=== PATIENT | female | born 1995 | race Caucasian/White ===

== ENCOUNTER 2018-03-09 13:20 | Emergency (ER) | payer OTHER ==
[2018-03-09 14:22] VITALS: BP 104/74
--- NOTE | 2018-03-09 14:23 | UC ---
Complaint Female HPI - HPI Summary HPI Summary: 23 yo female presents with urinary pressure and burning that began this morning. She tells me that she has had UTIs in the past and this feels the same. Denies fever, chills, abdominal pain, n/v, flank pain, vaginal bleeding/ discharge. - History Of Current Complaint Chief Complaint: UCGU Stated Complaint: URINARY Time Seen by Provider: 03/09/18 14:22 Hx Obtained From: Patient Hx Last Menstrual Period: 02/24/18 Onset/Duration: Sudden Onset Severity Currently: None Pain Intensity: 0 - Allergies/Home Medications Allergies/Adverse Reactions: Allergies Allergy/AdvReac Type Severity Reaction Status Date / Time No Known Allergies Allergy Verified 08/12/15 11:14 Home Medications: Home Medications B12 500 mcg PO DAILY 03/09/18 [History Confirmed 03/09/18] PMH/Surg Hx/FS Hx/Imm Hx - Additional Past Medical History Additional PMH: Vitamin B12 def - Surgical History Surgical History: None - Family History Known Family History: Positive: None - Social History Occupation: Student Lives: Dormitory/Roommates Alcohol Use: Occasionally Substance Use Type: None Smoking Status (MU): Never Smoked Tobacco Review of Systems Constitutional: Negative Skin: Negative Respiratory: Negative Cardiovascular: Negative Gastrointestinal: Negative Genitourinary: Dysuria, Urgency Neurovascular: Negative Neurological: Negative Psychological: Negative All Other Systems Reviewed And Are Negative: Yes Physical Exam - Summary Physical Exam Summary: GENERAL: NAD. WDWN. No pain distress. SKIN: No rashes, sores, lesions, or open wounds. NECK: Supple. Nontender. No lymphadenopathy. CHEST: CTAB. No r/r/w. No accessory muscle use. Breathing comfortably and in no distress. CV: RRR. Without m/r/g. Pulses intact. Cap refill <2seconds ABDOMEN: Soft. NTTP. No distention or guarding. No CVA tenderness. Bowel sounds present NEURO: Alert. PSYCH: Age appropriate behavior. Triage Information Reviewed: Yes Vital Signs: Initial Vital Signs Temp 98.7 F 03/09/18 14:15 Pulse 68 03/09/18 14:15 Resp 22 03/09/18 14:15 BP 104/74 03/09/18 14:15 Pulse Ox 100 03/09/18 14:15 Vital Signs Reviewed: Yes Complaint Female Dx - Course Course Of Treatment: UA with trace leuks and 3+ blood. Will treat for UTI with Bactrim and send her urine for culture. - Differential Dx/Diagnosis Provider Diagnoses: UTI Discharge - Sign-Out/Discharge Documenting (check all that apply): Patient Departure All imaging exams completed and their final reports reviewed: No Studies - Discharge Plan Condition: Stable Disposition: HOME Prescriptions: Sulfamethox/Trimethoprim DS* [Bactrim DS 800/160 TAB*] 1 tab PO BID #10 tab Patient Education Materials: Urinary Tract Infection in Women (DC) Forms: *School Release Referrals: No Primary Care Phys,NOPCP [Primary Care Provider] - Additional Instructions: If you develop a fever, shortness of breath, chest pain, new or worsening symptoms - please call your PCP or go to the ED. - Billing Disposition and Condition Condition: STABLE Disposition: Home
--- NOTE | 2018-03-11 07:39 | UC ---
- Progress Note Progress Note: + E coli uti on Bactrim await sensitivity, no change ljj Discharge - Sign-Out/Discharge Documenting (check all that apply): Post-Discharge Follow Up All imaging exams completed and their final reports reviewed: No Studies - Discharge Plan Condition: Stable Disposition: HOME Prescriptions: Sulfamethox/Trimethoprim DS* [Bactrim DS 800/160 TAB*] 1 tab PO BID #10 tab Patient Education Materials: Urinary Tract Infection in Women (DC) Forms: *School Release Referrals: No Primary Care Phys,NOPCP [Primary Care Provider] - Additional Instructions: If you develop a fever, shortness of breath, chest pain, new or worsening symptoms - please call your PCP or go to the ED. - Billing Disposition and Condition Condition: STABLE Disposition: Home
== END 2018-03-09 14:56 | disposition home or self-care (01) ==
LOC: UCCORT 13:20
DX: N39.0 Urinary tract infection, site not specified (principal); E53.8 Deficiency of other specified B group vitamins; Z79.2 Long term (current) use of antibiotics
CPT/HCPCS: 81002; 87077; 87086; 87186; 99212; G0463

== ENCOUNTER 2018-04-13 13:16 | Emergency (ER) | payer OTHER ==
--- OUTSIDE RECORDS SUMMARY | 2018-04-13 13:56 | XMS REPORT | Continuity of Care Document ---
:1995 External Reference #:[id number] Author Name Whit Wright MD Address [address] [address] Care Team Providers Name Role Phone Whit Wright MD Care Team Information Commodity Director Unavailable Payers Type Date Identification Numbers Payment Provider Subscriber Effective: Policy Number: [id number] [facility] [place] Yash [place] 2017 PayID: [id number] [address] [address] [place] [address] Advance Directives Description No Information Available Problems Description No Information Family History Date Family Member(s) Problem(s) Comments Father Unknown Mother Bipolar Disorder Mother Anemia Children None Siblings None Social History Type Date Description Comments Sex Unknown Lives With Guardian calls them Mom and Dad, in [place], he is the step brother of her biological father, lives with them out of college season, together since pt was age 9yo . 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[employer], Communications major ETOH Use Denies alcohol use Tobacco Use Start: Unknown Patient has never smoked Recreational Drug Use Denies Drug Use Smoking Status Reviewed: Patient has never 12/30/17 smoked Exercise Type/Frequency Exercises regularly goes to a gym, dance team Currently Active Patient is currently sexually active # Partners in a Lifetime partners 12/30/17 --reports 9 Lifetime Allergies, Adverse Reactions, Alerts Description No Known Drug Allergies Medications Medication Date Status Form Strength Qnty SIG Indications Ordering Provider Adapalene 03/27/ Active Gel 0.1% 45gm apply to L70.9 Jaylan 2017 aliciaed Whit sanchez areas at bedtime - Folic Acid 01/20/ Active Tablets 1mg 30tabs 1 by mouth E53.9 [place] 2018 every day Whit sanchez with B12 Nualec 12/31/ Active Ring 0.12-0.015 3units insert Z30.09 [place] 2018 mg/24HR vaginally, Whit sanchez, keep in MD place for 3 weeks, remove for one week, place another Vitamin B12 / Active Tablets 500mcg 1 by mouth E53.9 Unknown 0000 every day Sertraline 01/20/ Hx Concentrate 20mg/ml 60ml 1 ml daily F41.9 [place] HCL 2017 - for 2 Whit sanchez, 03/26/ weeks and 2017 increase to 2 ml daily if not better No Active 12/30/ Hx Unknown Medications 2017 - 2017 Immunizations CPT Code Status Date Vaccine Lot # [id number] Given 12/31/2017 Meningococcal B(Bexsero)protn otrMembran Vesicle [id number] Vccn 2 dose sche U-Td Given 10/26/2014 Td(Adult) (Non Billable) Unspecified 90856 Given 10/26/2014 Menactra/Menveo Meningococcal Vaccine 12946 Given 04/01/2014 Gardasil-9 (HPV) Nonavalent 2-[place] [id number] Given 09/30/2013 Gardasil-9 (HPV) Nonavalent 2-[place] [address] Given 06/29/2013 Gardasil-9 (HPV) Nonavalent 2-[place] [address] Given 01/01/2011 Hepatitis A, Ped/Adolescent 2 Dose Schedule 01090 Given 02/13/2009 Hepatitis A, Ped/Adolescent 2 Dose Schedule 35925 Given 03/01/2008 Tdap (Adacel) Ages 7 And Above Only 51681 Given 02/11/2008 Menactra/Menveo Meningococcal Vaccine U-Polio Given 02/20/2004 Polio (Non Billable) Unspecified 39515 Given 02/14/2004 Varicella (Chicken Pox) Immunization 88716 Given 02/19/2001 MMR Virus Immunization U-DTaP Given 02/19/2001 DTaP (Non Billable) Unspecified [id number] U-HIB Given 04/24/1999 Hib (Non Billable) Unspecified U-DTaP Given 04/24/1999 DTaP (Non Billable) Unspecified [id number] U-Polio Given 06/25/1998 Polio (Non Billable) Unspecified 28621 Given 02/23/1998 Varicella (Chicken Pox) Immunization 41523 Given 02/23/1998 MMR Virus Immunization U-HIB Given 1997 Hib (Non Billable) Unspecified U-DTaP Given 1997 DTaP (Non Billable) Unspecified [id number] 63922 Given 1997 Hepatitis B Vac Ped/Adolescent 3 Dose Schedule U-DTaP Given 1997 DTaP (Non Billable) Unspecified [id number] U-Polio Given 1997 Polio (Non Billable) Unspecified U-HIB Given 1997 Hib (Non Billable) Unspecified U-Polio Given 1997 Polio (Non Billable) Unspecified U-HIB Given 1997 Hib (Non Billable) Unspecified U-DTaP Given 1997 DTaP (Non Billable) Unspecified [id number] 67603 Given 1997 Hepatitis B Vac Ped/Adolescent 3 Dose Schedule 29863 Given 1997 Hepatitis B Vac Ped/Adolescent 3 Dose Schedule [id number] Refused 12/30/2017 Flu Vaccine NOS Vital Signs Date Vital Result Comment 03/27/2018 2:51pm Weight 121.00 lb Heart Rate 80 /min BP Systolic 112 mmHg BP Diastolic 70 mmHg Respiratory Rate 14 /min Height 63 inches 5'3" BMI (Body Mass Index) 21.4 kg/m2 01/20/2018 4:32pm Body Temperature 98.0 F Weight 118.00 lb Heart Rate 80 /min BP Systolic 114 mmHg BP Diastolic 68 mmHg Respiratory Rate 18 /min Height 63 inches 5'3" BMI (Body Mass Index) 20.9 kg/m2 12/30/2017 2:26pm Body Temperature 98.7 F Weight 117.00 lb Heart Rate 67 /min BP Systolic 112 mmHg BP Diastolic 70 mmHg Respiratory Rate 14 /min Height 63 inches 5'3" O2 % BldC Oximetry 98 % BMI (Body Mass Index) 20.7 kg/m2 Results Test Date Facility Test Result H/L Range Note Laboratory test 12/31/2017 Done In Doctors Office Urine NEG finding Test QL CBC with Auto 12/31/2017 [facility] WBC 7.7 K/uL 4.1-11.0 Diff-fcmg RBC 4.84 M/uL 4.00-5.40 Hemoglobin 13.8 gm/dL 12.0-16.0 Hematocrit 40.7 % 36.0-47.0 MCV 84.1 fL 80.0-97.0 MCH 28.4 pg 27.0-32.0 MCHC 33.8 g/dL 32.0-36.0 RDW 13.7 % 11.5-14.5 PLT Count 220 K/ul 140-400 MPV 8.4 FL 7.1-10.7 Neutrophil 69.0 % 35.0-75.0 Lymphocyte 22.9 % 16.0-52.0 Monocyte 7.2 % 2.0-10.0 Eosinophil 0.3 % 0.0-5.0 Basophil 0.6 % 0.0-4.0 Abs Neutrophils 5.3 K/uL 2.1-8.0 Abs Lymphocytes 1.8 K/uL 0.8-5.5 Abs Monocytes 0.6 K/uL 0.1-1.0 Abs Eosinophils 0.0 K/uL 0.0-0.5 Abs Basophils 0.0 K/uL 0.0-0.3 Comprehensive Met Panel-[facility] 12/31/2017 [facility] Sodium 140 mmol/L 135- 146 1 Potassium 4.1 mmol/L 3.5-5.2 Chloride# 101 mmol/L 97-110 2 Carbon Dioxide 27 mmol/L 24-34 Glucose 63 mg/dL Low 70-105 BUN 9 mg/dL 6-26 Creatinine 0.6 mg/dL 0.5-1.4 Calcium 9.7 mg/dL 8.5-10.2 Total Protein 7.6 g/dL 6.0-8.0 Albumin 4.7 g/dL 3.6-4.9 Globulin 2.9 g/dL 2.0-3.5 A/G Ratio 1.6 Ratio 1.0-2.2 Total Bilirubin 0.5 mg/dL 0.1-1.3 Alkaline Phosphatase 52 U/L 24-140 Alt 11 U/L 3-42 Ast 13 U/L 8-42 Raissa Egfr >60 >60 3 Non Raissa Egfr >60 >60 4 Anion Gap 12 mmol/L 5-15 5 Laboratory test finding 12/31/2017 [facility] TSH 1.15 uIU/mL 0.35-4.94 Free T4 1.07 ng/dL 0.70-1.48 Vitamin B12 244 pg/mL 180-914 HIV Combo By [facility] 12/31/2017 [facility] HIV Combo NON REACTIVE Non Reactive GC/Chlamydia By 12/31/2017 [facility] Chlamydia by Dna NEGATIVE Negative Dna Probe Probe GC by Dna Probe NEGATIVE Negative 1 Updated reference range on new analyzer 2 Updated reference range on new analyzer 3 Concerning GFR Guidelines for Americans: Normal function or mild renal disease, if clinically at risk: >/=60 mL/min Moderately decreased: 30-59 Severely decreased: 15-29 Renal failure: <15 4 Concerning GFR Guidelines: Normal function or mild renal disease, if clinically at risk: >/=60 mL/min Moderately decreased: 30-59 Severely decreased: 15-29 Renal failure: <15 Glomerular Filtration Rate (GFR) is estimated based on the MDRD equation, which assumes a steady state for creatinine as recommended by the National Kidney Disease Education Program in conjunction with the National Institutes of Health and the National Kidney Foundation. Clinical conditions in which it may be necessary to measure GFR by using clearance methods include extremes of age and body size, severe malnutrition or obesity, diseases of skeletal muscle, paraplegia or quadriplegia, vegetarian diet, rapidly changing kidney function, and calculation of the dose of potentially toxic drugs that are excreted by the kidneys. 5 Updated Reference Range Procedures Date Code Description Status 03/27/2018 35890 Brief Emotional/Behav Assessment W/ Scoring Doc Per Completed Standard Inst 01/20/2018 28820 Brief Emotional/Behav Assessment W/ Scoring Doc Per Completed Standard Inst 12/30/2017 55482 Brief Emotional/Behav Assessment W/ Scoring Doc Per Completed Standard Inst Encounters Type Date Location Provider Dx Diagnosis Office Visit 01/20/2018 [facility] Whit Wright, F41.9 Anxiety disorder, 4:15p unspecified E53.9 Vitamin B deficiency, unspecified Office Visit 12/30/2017 2:00p [facility] Whit Wright MD F41.9 Anxiety disorder, unspecified Z11.3 Encntr screen for infections w sexl mode of transmiss L70.9 Acne, unspecified N94.4 Primary dysmenorrhea Z30.09 Encounter for ot general coun and advice on contraception Z23 Encounter for immunization Plan of Treatment Future Appointment(s):06/30/2018 2:00 pm - Whit Wrigth MD at [facility]2017 - Whit Wright MDF41.9 Anxiety disorder, unspecifiedComments:pt with anxiety and ho depression sxs, and now with concerns for ADHD.ROSALES=17,last visit , this visit16 suggests severe anxiety. We reviewed the notes from [employer] and there was no specific diagnosis listed. She was found to have vit 12 defi, now on replacement. She is reluctant but now willing to take medications. She asks for liquid zoloft as she has trouble swallowing pills. start sertraline 25mg daily for 1-2 weeks then 50mg daily if not alot better, cautioned side effects, dizziness andgi upset and sexual. Also recommend CBT through counselling. She states she can't find a counsellor.Will have staff checkFollow up:schedule next visit in 2-3 mo for 30min annual brand director exam , ROSALES on lifztfuD68.9 Vitamin B deficiency, unspecifiedComments:Vitamin B12 deficiency, she feels better on dreaavhilpxB50.44 Encounter for surveillance of vaginal ring hormonal contraceComments:No nuva ring palpated on exam, so patient may place another and do a first morning urine test before placing.L70.9 Acne, unspecifiedNew Medication:Adapalene 0.1 % - apply to effected areas at bedtime -Comments:acnerecommend addition of topical differin gel/adapalenewash and dry with mild soapapply at bedtimewill make acne worse for at least 2 weeks , then should gradually improve over the next 2 months. recheck at followupcan do derm referral if wants and not improving
--- NOTE | 2018-04-13 13:58 | UC ---
Complaint Female HPI - HPI Summary HPI Summary: 23 yo female presents with urinary burning, pressure, and frequency that began this morning. I saw her about 1 month ago for similar symptoms and she was found to have a UTI with e.coli sensitive to all antibiotics tested against. At that time she was treated with Bactrim and had full resolution of her symptoms. She is currently on her period. Denies fever, chills, abdominal pain, n/v/d/c, flank pain. - History Of Current Complaint Stated Complaint: URINARY COMPLAINT Time Seen by Provider: 04/13/18 13:58 Hx Obtained From: Patient Hx Last Menstrual Period: 04/09/18 Onset/Duration: Sudden Onset Timing: Constant Severity Initially: Moderate Severity Currently: Moderate Pain Intensity: 5 Pain Scale Used: 0-10 Numeric - Allergies/Home Medications Allergies/Adverse Reactions: Allergies Allergy/AdvReac Type Severity Reaction Status Date / Time No Known Allergies Allergy Verified 08/12/15 11:14 Home Medications: Home Medications Etonogest/Eth.estradiol (Nf) [Nuvaring Vaginal Ring] 1 each VAGINAL .SEE COMMENTS 04/13/18 [History Confirmed 04/13/18] Facial Cream For Acne DAILY 04/13/18 [History] PMH/Surg Hx/FS Hx/Imm Hx - Additional Past Medical History Additional PMH: Acne - Surgical History Surgical History: None - Family History Known Family History: Positive: None - Social History Occupation: Student Lives: Dormitory/Roommates Alcohol Use: Occasionally Substance Use Type: None Smoking Status (MU): Never Smoked Tobacco Review of Systems All Other Systems Reviewed And Are Negative: Yes Constitutional: Positive: Negative Skin: Positive: Negative Respiratory: Positive: Negative Cardiovascular: Positive: Negative Gastrointestinal: Positive: Negative Genitourinary: Positive: Dysuria Neurovascular: Positive: Negative Neurological: Positive: Negative Psychological: Positive: Negative Physical Exam - Summary Physical Exam Summary: GENERAL: NAD. WDWN. No pain distress. SKIN: No rashes, sores, lesions, or open wounds. NECK: Supple. Nontender. No lymphadenopathy. CHEST: CTAB. No r/r/w. No accessory muscle use. Breathing comfortably and in no distress. CV: RRR. Without m/r/g. Pulses intact. Cap refill <2seconds ABDOMEN: Soft. NTTP. No distention or guarding. No CVA tenderness. Bowel sounds present NEURO: Alert. PSYCH: Age appropriate behavior. Triage Information Reviewed: Yes Vital Signs: Vital Signs: Temp Pulse Resp BP Pulse Ox 98.6 F 65 15 110/59 100 04/13/18 13:57 04/13/18 13:57 04/13/18 13:57 04/13/18 13:57 04/13/18 13:57 Laboratory Tests 04/13/18 14:09 POC Urine Color Yellow POC Urine Clarity Slightly cloudy POC Urine pH 7.0 POC Ur Specif [place] 1.020 POC Urine Protein Negative POC Ur Glucose (UA) Negative POC Urine Ketones Negative POC Urine Blood Trace-lysed A POC Urine Nitrite Negative POC Urine Bilirubin Negative POC Urine Urobilinogen 0.2 POC U Leukocyte Esteras Trace A Vital Signs Reviewed: Yes Complaint Female Dx - Course Course Of Treatment: UTI. Given her recent use of Bactrim, will treat with Keflex. She is requesting liquid formulation as she cannot swallow pills. - Differential Dx/Diagnosis Provider Diagnosis: UTI (urinary tract infection) Discharge - Sign-Out/Discharge Documenting (check all that apply): Patient Departure All imaging exams completed and their final reports reviewed: No Studies - Discharge Plan Condition: Stable Disposition: HOME Prescriptions: Cephalexin SUSP* [Keflex SUSP 250 MG/5 ML*] 10 ml PO BID #100 ml Patient Education Materials: Urinary Tract Infection in Women (DC) Forms: *School Release Referrals: No Primary Care Phys,NOPCP [Primary Care Provider] - Additional Instructions: If you develop a fever, shortness of breath, chest pain, new or worsening symptoms - please call your PCP or go to the ED. - Billing Disposition and Condition Condition: STABLE Disposition: Home
[2018-04-13 14:04] VITALS: BP 110/59
--- NOTE | 2018-04-15 08:09 | UC ---
- Progress Note Progress Note: few enterobacteriacae, possible contamination pt on cephalexin no change 04/15/18 Course/Dx - Diagnoses Provider Diagnoses: UTI (urinary tract infection) Discharge - Sign-Out/Discharge Documenting (check all that apply): Post-Discharge Follow Up All imaging exams completed and their final reports reviewed: No Studies - Discharge Plan Condition: Stable Disposition: HOME Prescriptions: Cephalexin SUSP* [Keflex SUSP 250 MG/5 ML*] 10 ml PO BID #100 ml Patient Education Materials: Urinary Tract Infection in Women (DC) Forms: *School Release Referrals: No Primary Care Phys,NOPCP [Primary Care Provider] - Additional Instructions: If you develop a fever, shortness of breath, chest pain, new or worsening symptoms - please call your PCP or go to the ED. - Billing Disposition and Condition Condition: STABLE Disposition: Home
== END 2018-04-13 14:31 | disposition home or self-care (01) ==
LOC: UCCORT 13:16
DX: N39.0 Urinary tract infection, site not specified (principal)
CPT/HCPCS: 81003; 87086; 99212; G0463